=== PATIENT | male | born 1985 | race Caucasian/White ===

== ENCOUNTER 2022-04-16 04:14 | Emergency (ER) | payer OTHER ==
[~2022-04-16] VITALS: Ht 177.8 cm; Wt 59.0 kg
--- NOTE | 2022-04-16 05:00 | NUR ---
Pt in bed resting. Denies SOB or chest pain but c/o localized substernal chest pressure. Able to follow commands and make needs known. SR on monitor.
[2022-04-16 05:16] LABS: HEMATOCRIT 41.6 % (36.7-47.1); MEAN CORPUSCULAR HEMOGLOBIN 30.6 uug (23.8-33.4); MEAN CORPUSCULAR VOLUME 88.6 fL (73.0-96.2); PLATELET COUNT (AUTO) 257 K/uL (152-348)
[2022-04-16 05:36] LABS: ALANINE AMINOTRANSFERASE 11 U/L (16-63); ALKALINE PHOSPHATASE 77 U/L (50-136); ASPARTATE AMINOTRANSFERASE 16 U/L (15-37); BILIRUBIN,DIRECT 0.1 mg/dL (0.0-0.2); BILIRUBIN,TOTAL 0.4 mg/dL (0.2-1.0); CARBON DIOXIDE 29 mmol/L (21-32); CHLORIDE 104 mmol/L (98-107); GLUCOSE 90 mg/dL (74-106); POTASSIUM 4.1 mmol/L (3.5-5.1); TOTAL PROTEIN, SERUM 7.3 g/dL (6.4-8.2); UREA NITROGEN, BLOOD 15 mg/dL (7-18)
[2022-04-16] MEDS ORDERED: KETOROLAC TROMETHAMINE 60 MG INJ IM ONE ×2 (06:00)
--- NOTE | 2022-04-16 07:10 | NUR ---
Received thorough report from PMRMary Conte RN using SBAR method leah outside pt room just before entering room and meeting pt for initial assess. Pt is a well groomed young man with good color, temp and appearance. VSS 104/65, 98%, 65bpm,m 16rpm. AAOx4, PERRLA, good distal pulses, lungs ctab, NSR without ectopy RRR normal s1s2 no m/g/r. Pt denies any pain, sob, n/v, dizziness or discomfort. Pt states that all symptoms have resolved. Repeat EKG ordered and performed with neg results. trop neg. Labs unremarkable. Pt pending dc home. No s/sx of distress present.
[2022-04-16] MEDS ORDERED: ASPIRIN 81 MG TAB.CHEW PO ONE (07:15)
--- NOTE | 2022-04-16 07:21 | NUR ---
Report given to Eduardo GASTON
[2022-04-16] MEDS ORDERED: ASPIRIN 81 MG TAB.CHEW ONE (07:41)
--- NOTE | 2022-04-16 08:06 | NUR ---
Pt given DC instructions and pt confirmed understanding of aftercare. VSS 65bpm, 99%, 124/80, pt denies any pain, sob or n/v. No dizziness or lightheadedness. Pt states that he feels fine. No s/sx of distress present. Pt amb out of dept with steady gate.
[2022-04-16 08:43] VITALS: BP 124/80
== END 2022-04-16 08:06 | disposition home or self-care (01) ==
LOC: ER 04:28
DX: R07.9 Chest pain, unspecified (principal); Z82.49 Family history of ischemic heart disease and other diseases of the circulatory system; Z88.0 Allergy status to penicillin; Z88.8 Allergy status to other drugs, medicaments and biological substances; J45.909 Unspecified asthma, uncomplicated
CPT/HCPCS: 36415; 71045; 80048; 80076; 84484 ×2; 85025; 93005 ×2; 96372; 99285; J1885; A4663